=== PATIENT | female | born 1940 | race African-American/Black ===

== ENCOUNTER 2017-03-30 05:54 | Day surgery (SDC) | payer MEDICARE, OTHER ==
[~2017-03-30] VITALS: Ht 152.4 cm; Wt 66.7 kg
[~2017-03-30 05:54] MED LIST: ALIR150P SQ; AMLO2.5T45 PO; ASPI-1159 PO; ATOR40TA70 PO; CARV25TA47 PO; CHOL100044 PO; COLC0.6C PO; FEBU40TA PO; FLUT1DIS3 IH; FURO20TA4 PO; INSHUMSS SUBCUT; ISOS1TAB PO; OCD PO; PYRI100T2 PO
[2017-03-30] MEDS ORDERED: SODIUM CHLORIDE 0.9% 1,000 ML IV SCH (06:50)
[2017-03-30] MEDS ORDERED: BUPIVACAINE HCL/PF 0.25% (2.5MG/ML) 10ML ONE (07:02)
[2017-03-30] MEDS ORDERED: LIDOCAINE HCL/PF 1% 10 MG/ML 5ML VIAL ONE (07:26)
[2017-03-30] MEDS ORDERED: PROPOFOL 200MG/20ML VIAL IV ONE (07:26)
[2017-03-30] MEDS ORDERED: FENTANYL CITRATE/PF 50MCG/ML 2ML VIAL ONE (07:26)
[2017-03-30] MEDS ORDERED: MIDAZOLAM HCL 2 MG/2 ML VIAL ONE (07:26)
[2017-03-30] MEDS ORDERED: CEFAZOLIN SODIUM 1000MG/VIAL ONE (07:50)
[2017-03-30] MEDS ORDERED: EPHEDRINE SULFATE 50MG/ML VIAL ONE (07:56)
[2017-03-30] MEDS ORDERED: LABETALOL 5MG/ML SYR 20 MG/4 ML SYRINGE IV PRN (08:00)
[2017-03-30] MEDS ORDERED: MEPERIDINE HCL/PF 25MG/ML CPJ IV PRN (08:00)
[2017-03-30] MEDS ORDERED: HYDROMORPHONE HCL/PF 2MG/ML CPJ IV PRN (08:00)
[2017-03-30] MEDS ORDERED: ONDANSETRON HCL 4MG/2ML VIAL IV PRN (08:00)
[2017-03-30] MEDS ORDERED: BACITRACIN ZINC 15GM TUBE TOP ONE (08:04)
== END 2017-03-30 10:45 | disposition home or self-care (01) ==
LOC: OR 05:54
PROVIDERS: ATTEND Urology
DX: C51.9 Malignant neoplasm of vulva, unspecified (principal); I13.0 Hypertensive heart and chronic kidney disease with heart failure and stage 1 through stage 4 chronic kidney disease, or unspecified chronic kidney disease; E11.22 Type 2 diabetes mellitus with diabetic chronic kidney disease; N18.3 Chronic kidney disease, stage 3 (moderate); I50.89 Other heart failure; J44.9 Chronic obstructive pulmonary disease, unspecified; I25.10 Atherosclerotic heart disease of native coronary artery without angina pectoris; I25.2 Old myocardial infarction; M10.9 Gout, unspecified; E78.4 Other hyperlipidemia; E78.00 Pure hypercholesterolemia, unspecified; Z98.890 Other specified postprocedural states; Z87.891 Personal history of nicotine dependence; Z79.4 Long term (current) use of insulin; Z79.82 Long term (current) use of aspirin; Z88.2 Allergy status to sulfonamides; Z88.8 Allergy status to other drugs, medicaments and biological substances; Z79.899 Other long term (current) drug therapy; Z82.49 Family history of ischemic heart disease and other diseases of the circulatory system; Z95.1 Presence of aortocoronary bypass graft
CPT/HCPCS: 11626; 12042; 82962; 88304; J0171; J0690; J2250; J3010; J3490; J7120; J2704